=== PATIENT | male | born 1955 | race Caucasian/White ===

== ENCOUNTER → 2020-05-06 | Outpatient (CLI) | payer OTHER | LOC: ULTRA 08:50 | PROVIDERS: ATTEND Nurse Practitioner | DX: K80.20 Calculus of gallbladder without cholecystitis without obstruction (principal); R16.1 Splenomegaly, not elsewhere classified ==

== ENCOUNTER → 2020-09-10 | Outpatient (CLI) | payer OTHER | LOC: LAB 13:58 | PROVIDERS: ATTEND Surgery | DX: U07.1 COVID-19 (principal) ==

== ENCOUNTER → 2020-09-14 | Outpatient (CLI) | payer OTHER | LOC: LAB 10:37 | PROVIDERS: ATTEND Nurse Practitioner | DX: U07.1 COVID-19 (principal) ==

== ENCOUNTER 2020-09-29 07:09 | Day surgery (SDC) | payer OTHER ==
[~2020-09-29] VITALS: Ht 182.9 cm; Wt 93.0 kg
[~2020-09-29 07:09] MED LIST: DIAZEPAM 5 MG5 M1 PO; MULTI VITAMIN1 EACH PO
[2020-09-29 07:51] VITALS: BP 155/91
[2020-09-29] MEDS ORDERED: NORCO 5-325 TA1 EAC2 PO (09:26)
--- NOTE | 2020-09-29 12:30 | O ---
[facility] [place] [address] [place] [address] OPERATIVE REPORT Name: ALPHONSO VAUGHAN Room #: 150-1 [facility]..#: [id number] Admission: 09/29/20 Attend Phys: Olegario Malone MD Discharge: Date of : 55 Report #: [id number] THIS REPORT FOR: cc: Astrid Mcgrath,Olegario Hensley MD ~ CC: Astrid Malone DATE OF SERVICE: 09/29/2020 PATIENT OF: Astrid Mcgrath, nurse practitioner; Dr. Olegario Malone and Dr. Cuco Pace. PREOPERATIVE DIAGNOSES: Cholelithiasis, cholecystitis, biliary colic. POSTOPERATIVE DIAGNOSES: Cholelithiasis, cholecystitis, biliary colic. PROCEDURE: Laparoscopic cholecystectomy. SURGEON: Olegario Malone MD ANESTHESIA: General. DESCRIPTION OF PROCEDURE: The patient was brought to the operating room and placed on operative table in the supine position. Sequential compression devices were in place for DVT prophylaxis. The patient received an appropriate preoperative dose of Mefoxin. The patient underwent a general endotracheal anesthesia and the abdomen was then prepped and draped in a sterile fashion. Skin and subcutaneous tissue were then infiltrated with 0.5% Marcaine. An infraumbilical transverse skin incision was then performed using #11 scalpel blade. Hemostasis obtained using electrocautery. Dissection was carried down through subcutaneous tissue, the fascia, which was then grasped between 2 Raymon clamps and incised with the Allen scissors and electrocautery. The peritoneum was entered and a pursestring suture of 0 Vicryl was then placed in the fascia. A 12-mm disposable Paresh port was inserted through the opening and held into place with the balloon port and the pursestring suture and pneumoperitoneum obtained to a level of 10-15 mmHg. Laparoscope was then inserted through this port and 2 lateral 5 mm Surgiport as well as an upper midline 12-mm Surgiport were all inserted under direct visualization after infiltration with 0.5% Marcaine. An exploration was performed, which revealed a slightly dilated gallbladder with some adhesions around it. There were some adhesions along the right lateral wall that were carefully dissected free using the [facility] [address] [address] OPERATIVE REPORT Name: ALPHONSO VAUGHAN Room #: 150-1 [facility].#: [id number] Admission: 09/29/20 Attend Phys: Olegario Malone MD Discharge: Date of : 55 Report #: [id number] dissector and electrocautery. The visualized bowel all appeared normal along with the liver. The gallbladder was then grasped and retracted superiorly and the adhesions around the gallbladder were carefully dissected free using the [place] dissector and electrocautery. The cystic duct and artery were then dissected free. A small vein was noted running with the cystic duct and this was dissected free and clipped on each side and divided with the scissors. The cystic common bile duct junction and the triangle of safety were clearly identified. The cystic duct was then doubly clipped on the gallbladder side, then triply clipped on the common bile duct side and divided with the scissors. The cystic artery was branched with an anterior and posterior branch and these were individually doubly clipped and divided with the scissors. The gallbladder was then dissected free from the bed using the hook electrocautery. Prior to completing the dissection, the gallbladder was retracted superiorly and the bed inspected for hemostasis, which was obtained using electrocautery and found to be intact. Gallbladder was then transected and brought out through the upper midline port and sent as specimen to pathology. The port was then returned to the abdomen. The area was then copiously irrigated with warm saline solution, which was suctioned free. Hemostasis was checked and found to be intact. The ports were then all removed under direct visualization and hemostasis intact at each port site. Pneumoperitoneum was released and periumbilical port was then also removed under direct visualization, hemostasis intact at that port site as well. Periumbilical fascia was then closed using the 0 Vicryl pursestring suture. The upper midline fascia was then closed using a [id number] 0 Vicryl suture. Skin was then closed using interrupted vertical mattress 5-0 nylon sutures and wound was dressed with Band-Aids. The patient was then awakened from the general endotracheal anesthesia, extubated, and taken to recovery room in good condition. Estimated blood loss was approximately 10 mL and the patient tolerated procedure well. All sponge, lap and instrument counts correct x 2. <ELECTRONICALLY SIGNED> By: Olegario Malone MD 09/29/20 1230 1054 1151 Olegario Malone MD /nt
--- NOTE | 2020-10-01 16:06 | PATH ---
[facility] [address] [place] [address] PATHOLOGY RPT PROCEDURE Name: ALPHONSO VAUGHAN Room #: DEP [facility]..#: [id number] Admission: 09/29/20 Date of : 55 Discharge: 09/29/20 Report #: [id number] Path Case #: [id number] [facility] Accession Number: [id number] . 01 Material submitted: . gallbladder - GALLBLADDER . 01 Clinical history: . CHOLELITHIASIS . 02 Diagnosis: Gallbladder, cholecystectomy: - Mild chronic cholecystitis. - Cholelithiasis. - Cholesterolosis. . (IUV:mml; 10/01/2020) QL 10/01/2020 1501 Local . 02 Electronically signed: . Naomy Terrell MD, Pathologist NPI- [id number] . 01 Gross description: . The specimen is received in formalin labeled "Vaughan, Alphonso, gallbladder" and consists of a punctured and inflated pink-medina to green gallbladder measuring 6.9 x 3.1 x 1.0 cm. The margin is inked black. Opening reveals a lumen filled with green bile and a spiculated green calculus measuring 1.1 cm. The mucosa is green with extensive yellow stippling and an average wall thickness of 0.1 cm. No masses are identified. Application Support Administrator sections are submitted in A1. (SDY; 09/30/2020) SYU/SYU 09/30/2020 1355 Local . 02 Pathologist provided ICD-10: K80.10, K82.4 . 02 CPT . 960479 Specimen Comment: A courtesy copy of this report has been sent to [phone], [phone]- Specimen Comment: [id number] Specimen Comment: Report sent to / DR FERNANDEZ Performed at: [address] [place] [id number] MD Leonid Sorto MD Phone: [phone] [facility] [address] [place] [address] PATHOLOGY RPT PROCEDURE Name: ALPHONSO VAUGHAN Room #: DEP [facility] Chet#: [id number] Admission: 09/29/20 Date of : 55 Discharge: 09/29/20 Report #: [id number] Path Case #: [id number] Performed at: [address] [facility] [place] [id number] MD Naomy Terrell MD Phone: [phone]
== END 2020-09-29 12:10 | disposition home or self-care (01) ==
LOC: OR 07:09 → TBA 07:09 → OR 09:35
PROVIDERS: ATTEND Surgery
DX: K80.10 Calculus of gallbladder with chronic cholecystitis without obstruction (principal); F41.9 Anxiety disorder, unspecified; Z98.890 Other specified postprocedural states; Z79.899 Other long term (current) drug therapy
CPT/HCPCS: 50010; 50101; 50411; 50555; 50558; 51474; 51489; 52266; 53314; 56462; 56524; 56528; 62110; 62900; 70005

== ENCOUNTER 2020-12-30 08:17 | Emergency (ER) | payer OTHER ==
[~2020-12-30] VITALS: Ht 182.9 cm; Wt 90.7 kg
[~2020-12-30 08:17] MED LIST changes: +NORCO 5-325 TA1 EAC2 PO
[2020-12-30] MEDS ORDERED: METOPROLOL SUCC50 MG PO (08:39)
[2020-12-30] MEDS ORDERED: PRINIVIL20 MG PO (08:39)
[2020-12-30 08:47] LABS: HEMATOCRIT 50.7 % (42.0-52.0); HEMOGLOBIN 17.1 gm/dL (14.0-18.0); MCH 29.6 pg (26.0-34.0); MCHC 33.7 g/dL (28.0-37.0); MCV 87.9 fL (80.0-100.0); RBC 5.76 mil/uL (4.50-6.00); RDW 13.7 % (10.5-14.5); WBC 7.4 thou/uL (4.0-11.0)
[2020-12-30 08:48] LABS: ANION GAP 9 mmol/L (7-16); BUN 12 mg/dL (7-18); CALCIUM 9.5 mg/dL (8.5-10.1); CHLORIDE 103 mmol/L (98-107); CO2 26 mmol/L (21-32); CREATININE 0.9 mg/dL (0.7-1.3); GLUCOSE 117 mg/dL (74-106); SODIUM 138 mmol/L (136-145)
[2020-12-30 08:49] LABS: POTASSIUM 4.8 mmol/L (3.5-5.1)
[2020-12-30 08:58] LABS: ALBUMIN 4.2 g/dL (3.4-5.0); SGOT 26 U/L (15-37); SGPT 25 U/L (16-63); TOTAL BILIRUBIN 0.7 mg/dL (0.2-1.0); TOTAL PROTEIN 7.6 g/dL (6.4-8.2); TROPONIN-I <0.06 ng/mL (<0.06)
[2020-12-30] MEDS ORDERED: MECLIZINE HCL25 M1 PO (11:53)
[2020-12-30 12:15] VITALS: BP 140/76
--- NOTE | 2020-12-30 13:51 | EKG ---
[place] [address] [employer] [facility] [place] [address] ELECTROCARDIOGRAM REPORT Name: ALPHONSO VAUGHAN [id number] Admission: 12/30/20 Attend Phys: Discharge: 12/30/20 Date of : 55 Report #: [id number] [facility] ED Test Date: 2020-12-30 Test Time: 08:40:01 Pat Name: ALPHONSO VAUGHAN Department: Room: Gender: M Debt Recovery Officer: : 1955 Requested By: Zach Vargas Order Number: [id number] MD: Geovanny Herndon Measurements Intervals Gower Rate: 67 P: 4 MN: 176 QRS: 47 QRSD: 113 T: 187 QT: 432 QTc: 456 Interpretive Statements Sinus rhythm Inferior infarct, old J Point elevation, anterior leads No previous ECG available for comparison Electronically Signed On 12-30-2020 13:51:23 [employer] by Geovanny Herndon [email or web address] <ELECTRONICALLY SIGNED> By: Geovanny Herndon MD, [facility] 12/30/20 1351 0840 0840 Geovanny Herndon MD, FACC /EPI
[2020-12-31] MEDS ORDERED: ASPIR 8181 MG PO (15:53)
[2020-12-31] MEDS ORDERED: MIRALAX17 GM PO (15:53)
[2020-12-31] MEDS ORDERED: MECLIZINE HCL25 M1 PO (15:53)
[2020-12-31] MEDS ORDERED: TYLENOL325 MG PO (15:53)
== END 2020-12-30 12:16 | disposition home or self-care (01) ==
LOC: ER 08:17
PROVIDERS: Emergency Medicine
DX: R42 Dizziness and giddiness (principal); Z79.899 Other long term (current) drug therapy; Z86.73 Personal history of transient ischemic attack (TIA), and cerebral infarction without residual deficits

== ENCOUNTER 2020-12-30 16:36 | Inpatient (IN) | payer OTHER ==
[~2020-12-30] VITALS: Ht 182.9 cm; Wt 99.8 kg
[~2020-12-30 16:36] MED LIST changes: +MECLIZINE HCL25 M1 PO; +METOPROLOL SUCC50 MG PO; +PRINIVIL20 MG PO
[2020-12-30 16:40] VITALS: BP 152/89
[2020-12-30 19:43] VITALS: BP 151/70
[2020-12-30 20:04] VITALS: BP 143/75
[2020-12-30 21:16] VITALS: BP 151/92
[2020-12-31 04:24] VITALS: BP 154/99
[2020-12-31 05:22] LABS: ANION GAP 6 mmol/L (7-16); BUN 14 mg/dL (7-18); CALCIUM 8.7 mg/dL (8.5-10.1); CHLORIDE 106 mmol/L (98-107); CO2 27 mmol/L (21-32); CREATININE 0.7 mg/dL (0.7-1.3); GLUCOSE 93 mg/dL (74-106); POTASSIUM 4.1 mmol/L (3.5-5.1); SODIUM 139 mmol/L (136-145)
[2020-12-31 08:00] VITALS: BP 155/97
[2020-12-31 10:05] VITALS: BP 145/91
[2020-12-31 10:29] LABS: CHOLESTEROL 154 mg/dL (<200); HDL CHOLESTEROL 44 mg/dL (>40); LDL CHOLESTEROL 92 mg/dL (<100); TC:HDL 3.5 Ratio (Not establshd); TRIGLYCERIDE 94 mg/dL (<150); VLDL 19 mg/dL (<40)
--- NOTE | 2020-12-31 11:46 | 2DMMODE ---
[facility] [place] [address] 2 D/M-MODE ECHOCARDIOGRAM Name: ALPHONSO VAUGHAN Room #: 457-P ADM IN M.R.#: [id number] Admission: 12/30/20 Attend Phys: Bharath Pearl MD Discharge: Date of : 55 Report #: [id number] THIS REPORT FOR: cc: Astrid Mcgrath Beth RNP Santiago, Patrick MD [facility] ~ APPROVED REPORT Study performed: 12/31/2020 10:16:05 EXAM: Comprehensive 2D, Doppler, and color-flow Echocardiogram Patient Location: Bedside Room #: [facility] Status: routine BSA: 2.22 HR: 64 bpm BP: 155/100 mmHg Rhythm: NSR Other Information Study Quality: Good Indications Diabetes Dizziness and Vertigo CAD Hypertension/HDD 2D Dimensions RVDd: 33.90 mm IVSd: 12.17 (7-11mm) LVOT Diam: 23.29 (18-24mm) LVDd: 62.87 mm PWd: 12.40 (7-11mm) Ascending Ao: 35.37 (22-36mm) LVDs: 53.68 (25-40mm) Aortic Root: 32.90 mm IVC: 15.00 mm Volumes Left Atrial Volume (Systole) Single Plane 4CH: 98.60 mL Single Plane 2CH: 73.23 mL LA ESV Index: 41.00 mL/m2 Aortic Valve AoV Peak Jacky.: 1.15 m/s AO Peak Gr.: 5.28 mmHg LVOT Max P.75 mmHg [facility] [address] [email or web address] [address] 2 D/M-MODE ECHOCARDIOGRAM Name: ALPHONSO VAUGHAN Room #: 457-P [facility] IN M.R.#: [id number] Admission: 12/30/20 Attend Phys: Bharath Pearl MD Discharge: Date of : 55 Report #: [id number] LVOT Max V: 0.83 m/s TARYN Vmax: 3.07 cm2 Mitral Valve E/A Ratio: 1.2 MV Decel. Time: 185.35 ms MV E Max Jacky.: 1.13 m/s MV A Jacky.: 0.98 m/s MV PHT: 53.75 ms IVRT: 124.57 ms Pulmonary Valve PV Peak Jacky.: 1.13 m/s PV Peak Gr.: 5.09 mmHg Pulmonary Vein P Vein S: 0.42 m/s P Vein A: 0.30 m/s P Vein D: 0.28 m/s P Vein A Dur.: 129.2 msec P Vein S/D Ratio: 1.50 Tricuspid Valve TR Peak Jacky.: 2.33 m/s TR Peak Gr.: 21.68 mmHg PA Pressure: 27.00 mmHg Left Ventricle Left ventricle is dilated. There is severe hypokinesis in the posterior wall. There is severe hypokinesis in the inferior wall. Mild concentric left ventricular hypertrophy. Left ventricular ejection fraction is moderately decreased. LVEF is 35%. Grade II - pseudonormal filling dynamics. Right Ventricle The right ventricle is normal size. The right ventricular systolic function is normal. Atria Left atrium is dilated. Right atrium is dilated. Aortic Valve The aortic valve is normal in structure. Trace aortic regurgitation. There is no aortic valvular stenosis. Mitral Valve The mitral valve is normal in structure. Moderate mitral regurgitation. No evidence of mitral valve stenosis. [facility] [place] [address] 2 D/M-MODE ECHOCARDIOGRAM Name: ALPHONSO VAUGHAN Room #: 457-P ADM IN M.R.#: [id number] Admission: 12/30/20 Attend Phys: Bharath Pearl MD Discharge: Date of : 55 Report #: [id number] Tricuspid Valve The tricuspid valve is normal in structure. There is trace tricuspid regurgitation. Estimated PAP 27 mmHg. There is no pulmonary hypertension. Pulmonic Valve The pulmonary valve is normal in structure. There is no pulmonic valvular regurgitation. Great Vessels The aortic root is normal in size. IVC is normal in size and collapses >50% with inspiration. Pericardium There is no pericardial effusion. <Conclusion> Mildly dilated left ventricle/mild LVH Global hypokinesis ejection fraction 35% Grade 2 diastolic dysfunction Normal right ventricle size/function Mild biatrial enlargement Moderate/central mitral valve insufficiency Mild tricuspid valve insufficiency Pulmonary systolic pressure estimate of 27 mmHg No pericardial effusion <ELECTRONICALLY SIGNED> By: Geovanny Herndon MD, FACC 12/31/20 1146 1146 1146 Geovanny Herndon MD, FACC /INF
[2020-12-31 14:11] VITALS: BP 137/82
[2020-12-31] MEDS ORDERED: MIRALAX17 GM PO (15:53)
[2020-12-31] MEDS ORDERED: MECLIZINE HCL25 M1 PO (15:53)
[2020-12-31] MEDS ORDERED: ASPIR 8181 MG PO (15:53)
[2020-12-31] MEDS ORDERED: TYLENOL325 MG PO (15:53)
[2020-12-31 16:56] VITALS: BP 137/82
[2021-01-01 03:06] LABS: GLYCOHEMOGLOBIN (HGB A1C) 5.3 % (4.8-5.6)
--- NOTE | 2021-01-01 12:15 | HC ---
[facility] [place] [address] [place] [address] CONSULTATION Name: ALPHONSO VAUGHAN Room #: 457-P [facility] IN M.R.#: [id number] Admission: 12/30/20 Attend Phys: Bharath Pearl MD Discharge: 12/31/20 Date of : 55 Report #: [id number] THIS REPORT FOR: cc: Astrid Mcgrath Beth RNP [place], Roxane S. DO ~ DATE OF SERVICE: 12/31/2020 NEUROLOGY CONSULTATION HISTORY OF PRESENT ILLNESS: The patient is an 85-year-old male who was admitted to the hospital because he thought his stroke was coming back. He does not remember exactly when his stroke was, but the patient states that he felt unsteady on his feet. He had fallen a few times at home and he feels a pulling sensation to the right. He denies any spinning sensation and he has no ear pain. Apparently, the patient has been COVID positive in the past. He also had his gallbladder removed about a month ago. Since then, he has been on diazepam 5 mg twice a day. The patient had actually come to the Emergency Room on 2 separate occasions, the first occasion he had an MRI of the brain, MRA of the brain, lab work and CT scan of the head, which revealed no findings for his dizziness. When the symptoms continued, he returned and was admitted to the hospital. The patient states that his symptoms have improved. In addition, the patient's dose of diazepam has been reduced to 5 mg once a day instead of twice a day. The patient denies any numbness or tingling in his feet. He does not feel dizzy when he turns over in bed. Apparently, the therapist came to visit him and turned his head from one side to the other, but he did not notice any increase in his symptoms. He told me he has been on Valium twice a day from his primary care provider. He has good dreams at night and he feels less anxious. PAST MEDICAL HISTORY: Anxiety, stroke, gastroesophageal reflux, hypertension. PAST SURGICAL HISTORY: Cholecystectomy. MEDICATIONS: Aspirin 81 mg daily, famotidine 20 mg b.i.d., lisinopril 20 mg daily, multivitamin daily, scopolamine patch, Valium 5 mg at bedtime. ALLERGIES: None. VITAL SIGNS: Temperature 36.9, pulse rate 68, respiratory rate 18, blood pressure 137/82, bedside pulse oximetry 98% on room air. LABORATORY DATA: Hematology: White blood cell count 7.4, hemoglobin 17.1, [place] [address] CONSULTATION Name: ALPHONSO VAUGHAN Room #: [address] [place] [address] [place] [facility].#: [id number] Admission: 12/30/20 Attend Phys: Bharath Pearl MD Discharge: 12/31/20 Date of : 55 Report #: [id number] hematocrit 50.7, MCV 87.9, platelet count 186,000. Chemistry: Sodium 139, potassium 4.1, chloride 106, carbon dioxide 27, BUN 14, creatinine 0.7, glucose 93, calcium 8.7. Liver functions normal. Lipid profile: Triglycerides 94, cholesterol 154. TSH 1.187. IMAGING: MRI of the head demonstrates no acute infarct, minimal microvascular disease is seen. MRA of the head is unremarkable. Carotids Doppler is unremarkable. Echocardiogram demonstrates mildly dilated left ventricle consistent with mild left ventricular hypertrophy and global hypokinesis with an ejection fraction of 35%. NEUROLOGIC: Cranial nerves 2-12 are grossly intact. Motor exam demonstrates symmetrical strength in all 4 extremities with tone and bulk normal. Reflexes are trace in the upper and lower extremities. Plantar responses are flexor. Coordination reveals intact [id number]. IMPRESSION AND PLAN: This patient has dizziness or pulling sensation to the right. I wonder if this is secondary to inner ear dysfunction. It is interesting to me that the patient's symptoms have improved now that the dose of diazepam has been reduced, although diazepam is a good medication for vestibular suppression, it does not suppress whatever vestibular function is present and perhaps that is why he felt more unsteady. To further work this up, I would recommend an outpatient referral to [facility], which is close to this hospital on [address]. He may also benefit from outpatient physical therapy. Consideration should be given to discontinuing scopolamine once the patient is discharged. I would not send him home with scopolamine nor would I sent him home with a prescription for meclizine. The continued use of diazepam should also be reconsidered. Sometimes medications cause side effects that are not immediately obvious. I thank you for your kind referral of the patient. <ELECTRONICALLY SIGNED> By: Anneliese Harris DO 01/01/21 1215 1659 02 Anneliese Harris DO /nt
== END 2020-12-31 18:53 | disposition home health service (06) | DRG 149 ==
LOC: ER 16:36 → EROBS 19:29 → 4W 19:29
PROVIDERS: Nurse Practitioner Family; ADMIT Internal Medicine; ATTEND Internal Medicine
DX: H81.13 Benign paroxysmal vertigo, bilateral (principal); F41.9 Anxiety disorder, unspecified; K21.9 Gastro-esophageal reflux disease without esophagitis; I10 Essential (primary) hypertension; E11.9 Type 2 diabetes mellitus without complications; F41.0 Panic disorder [episodic paroxysmal anxiety]; R27.0 Ataxia, unspecified; Z60.2 Problems related to living alone; Z86.73 Personal history of transient ischemic attack (TIA), and cerebral infarction without residual deficits; Z90.49 Acquired absence of other specified parts of digestive tract; Z86.16 Personal history of COVID-19; Z79.82 Long term (current) use of aspirin; Z79.899 Other long term (current) drug therapy; I25.2 Old myocardial infarction
CPT/HCPCS: 10045